=== PATIENT | female | born 1980 | race Caucasian/White ===

== ENCOUNTER 2016-08-17 19:52 | Emergency (ER) | payer OTHER ==
[~2016-08-17] VITALS: Ht 167.6 cm; Wt 77.1 kg
[2016-08-17 20:03] VITALS: BP 134/85
[2016-08-17] MEDS ORDERED: METH4TAB2 PO (21:12)
[2016-08-17] MEDS ORDERED: TRAM-29 PO (21:12)
[2016-08-17] MEDS ORDERED: METH-37 PO (21:12)
--- NOTE | 2016-08-17 21:13 | PHYS DOC ---
Past Medical History Past Medical History: GERD Past Surgical History: Appendectomy, Tubal ligation Alcohol Use: Occasionally Drug Use: None Adult General Chief Complaint Chief Complaint: HAND PROBLEM HPI HPI Patient is a 35 year old female with history of acid reflex presents with right hand pain and swelling that began yesterday due to carpal tunnel. Patient states she has history of carpal tunnel and was supposed to see an orthopedic doctor previously but has never followed up. Patient denies any injury. She states she works at a [employer]. Review of Systems Review of Systems Constitutional: Denies fever or chills [] Eyes: Denies change in visual acuity, redness, or eye pain [] HENT: Denies nasal congestion or sore throat [] Musculoskeletal: Right hand pain Integument: Denies rash or skin lesions [] Neurologic: Denies headache, focal weakness or sensory changes [] Endocrine: Denies polyuria or polydipsia [] Current Medications Current Medications Current Medications Medications (Trade) Dose Ordered Sig/Jameson Start Time Stop Time Status Last Admin Dose Admin Dexamethasone Sodium Phosphate (Decadron) 10 mg 1X ONCE 08/17/16 21:15 08/17/16 21:16 08/17/16 21:01 10 MG Ketorolac Tromethamine (Toradol Im) 60 mg 1X ONCE 08/17/16 21:15 08/17/16 21:16 08/17/16 21:02 60 MG Allergies Allergies Allergies Coded Allergies Type Severity Reaction Last Updated Verified sulfamethoxazole Allergy Intermediate 08/17/16 No trimethoprim Allergy Intermediate 08/17/16 No Physical Exam Physical Exam Constitutional: Well developed, well nourished, no acute distress, non-toxic appearance. [] HENT: Normocephalic, atraumatic, bilateral external ears normal, oropharynx moist, no oral exudates, nose normal. [] Eyes: PERRLA, EOMI, conjunctiva normal, no discharge. [] Skin: Warm, dry, no erythema, no rash. [] Back: No tenderness, no CVA tenderness. [] Extremities: Right hand with mild soft tissue swelling, no redness, no warmth. Positive Tinel's and Phalen sign. Full range of motion to the right hand and fingers. Adequate radial medial and ulnar sensation to the right hand. +2 right radial pulse. Cap refill less than 2 seconds the right upper extremity. Neurologic: Alert and oriented X 3, normal motor function, normal sensory function, no focal deficits noted. [] Psychologic: Affect normal, judgement normal, mood normal. [] Current Patient Data Vital Signs Vital Signs Date Time Temp Pulse Resp B/P (MAP) Pulse Ox O2 Delivery O2 Flow Rate FiO2 08/17/16 20:03 98.1 102 18 92 Room Air 98.1 EKG EKG [] Radiology/Procedures Radiology/Procedures [] Course & Med Decision Making Course & Med Decision Making Pertinent Labs and Imaging studies reviewed. (See chart for details) Patient is in the ED with complaints of right hand pain due to chronic carpel tunnel, she already has a brace to her right hand. She was discharged with Medrol Dosepak. She was also given a prescription for Ultram and Robaxin. She was provided orthopedic doctor for following up in 1-2 weeks. Dragon Disclaimer Dragon Disclaimer This electronic medical record was generated, in whole or in part, using a voice recognition dictation system. Departure Departure Impression: Primary Impression: Carpal tunnel syndrome of right wrist Disposition: 01 HOME, SELF-CARE Condition: STABLE Referrals: MARIELLE NGUYEN MD (PCP) NAZ JAMES MD follow up in one week Patient Instructions: Carpal Tunnel Syndrome Additional Instructions: You were seen for right hand pain due to carpal tunnel. Wear your brace as tolerated. Ice and elevate the extremity. Take the prescribed medicines as needed for pain. Scripts Methylprednisolone (MEDROL) 4 Mg Tab.ds.pk 1 PKG PO UD, #1 PKG Prov: JC STEARNS APRN 08/17/16 Methocarbamol (ROBAXIN) 500 Mg Tablet 1 TAB PO TID, #30 TAB Prov: JC STEARNS APRN 08/17/16 Tramadol Hcl (ULTRAM) 50 Mg Tablet 1 TAB PO Q6HRS, #30 TAB Prov: JC STEARNS APRN 08/17/16 JC STEARNS APRN August 17, 2016 21:13
[2016-08-17] MEDS ORDERED: KETOROLAC TROMETHAMINE 60 MG/2 ML INJ. IM ONE (21:15)
[2016-08-17] MEDS ORDERED: DEXAMETHASONE SOD PHOS 20 MG/5 ML VIAL. IM ONE (21:15)
== END 2016-08-17 21:24 | disposition home or self-care (01) ==
LOC: ER 19:52
DX: G56.01 Carpal tunnel syndrome, right upper limb (principal); K21.9 Gastro-esophageal reflux disease without esophagitis; Z88.2 Allergy status to sulfonamides; Z88.1 Allergy status to other antibiotic agents
CPT/HCPCS: 96372; 99284; J1100; J1885